=== PATIENT | female | born 1945 | race Caucasian/White ===

== ENCOUNTER 2018-07-28 09:07 | Emergency (ER) | payer MEDICARE, BC ==
--- NOTE | 2018-07-28 10:24 | EDM.PDOC ---
ED HPI GENERAL MEDICAL PROBLEM - General Chief Complaint: General Stated Complaint: left hip pain s/p fall Time Seen by Provider: 07/28/18 09:30 Source of Information: Reports: Patient History Limitations: Reports: No Limitations - History of Present Illness INITIAL COMMENTS - FREE TEXT/NARRATIVE: According to patient she was having breakfast in the local restaurant today morning. As they were coming out of the restaurant, she slipped on thin ice on the ground and fell landed on her left buttock.Since then patient claims she cannot walk or weight bear on her left foot and most of the pain in the in the inner groin region on the left side and in the pubic region of the pelvis. No swelling or bruising of the hip or buttock. No pain in the knees or feet. No other injuries. Onset: Today Onset Date: 07/28/18 Onset Time: 09:00 Duration: Getting Worse, Waxing/Waning Location: Reports: Pelvis Quality: Reports: Ache Severity: Moderate Improves with: Reports: Immobilization Worsens with: Reports: Movement Associated Symptoms: Denies: Confusion, Chest Pain, Cough, Diaphoresis, Fever/ Chills, Headaches, Loss of Appetite, Nausea/Vomiting, Rash, Seizure, Shortness of Breath, Syncope, Weakness ED ROS GENERAL - Review of Systems Review Of Systems: See Below Constitutional: Denies: Fever, Chills HEENT: Denies: Rhinitis, Throat Pain, Throat Swelling Respiratory: Denies: Cough, Sputum Cardiovascular: Denies: Chest Pain, Lightheadedness GI/Abdominal: Denies: Abdominal Pain, Nausea, Vomiting : Denies: Discharge, Frequency Musculoskeletal: Denies: Back Pain, Joint Pain, Joint Swelling Skin: Denies: Bruising, Pruritis, Rash ED EXAM, GENERAL - Physical Exam Exam: See Below Exam Limited By: No Limitations General Appearance: Alert, WD/WN, No Apparent Distress Ears: Normal External Exam, Normal Canal, Hearing Grossly Normal, Normal TMs Ear Exam: Bilateral Ear: Auricle Normal, Canal Normal, TM normal Nose: Normal Inspection, Normal Mucosa, No Blood Throat/Mouth: Normal Inspection, Normal Lips, Normal Teeth, Normal Gums, Normal Oropharynx, Normal Voice, No Airway Compromise Head: Atraumatic, Normocephalic Neck: Normal Inspection, Supple, Non-Tender, Full Range of Motion Respiratory/Chest: No Respiratory Distress, Lungs Clear, Normal Breath Sounds, No Accessory Muscle Use, Chest Non-Tender Cardiovascular: Normal Peripheral Pulses, Regular Rate, Rhythm, No Edema, No Gallop, No JVD, No Murmur, No Rub GI/Abdominal: Normal Bowel Sounds, Soft, Non-Tender, No Organomegaly, No Distention, No Abnormal Bruit, No Mass Extremities: Normal Inspection, No Pedal Edema, Normal Capillary Refill, Other ( Pelvis: there is no obvious deformity or bruising noted in the pubic region or the left hip. Cannot flex the thigh due to pain. On palaption no tenderness over the left femoral head or greater trochanter. She definitely is tender over the pubic symphysis to pressure. Cannot weight bear on the left lower extremity. ) Neurological: Alert, Oriented, CN II-XII Intact Course - Vital Signs Text/Narrative:: Pt is tender over the pubic symphysis and difficulty with thigh flexion. She left hip exam appears normal. X-ray of the left hip and pelvis shows undisplaced fracture of the superior and inferior aspect of the left symphysis pubis and also fracture of the mid-portion of the left inferior ramus. All the fractures are undisplaced. Pt's CBC is stable, I do not see any skin bruising in the pubis region.( only because of her Coumadin).Pt has nausea, related to her pain, offered Dilaudid( cannot give toradol Due to increased risk of bleeding with Coumadin) pt would prefer just nausea medication.She did receive zofran and also, zofran dispensed from ER to use every 8 hrs as needed. I did discuss the X-ray finding with Dr. Jacobo at [facility]. Recommendation is weight bearing with walker. But as patient is in pain, have given her Crutches to help with walking. Also advised Tylenol 650mg 4 times daily as needed for pain. No NSIADS. Cold compresses over the pubic region on and off for 24 hrs. Followup with her orthopedist next week for recheck. - Orders/Labs/Meds Orders: Active Orders 24 hr Category Date Time Status Hip Min 1V w Pelvis Lt [CR] Stat Exams 07/28/18 09:35 Taken Labs: Laboratory Tests 07/28/18 Range/Units 10:40 WBC 7.5 (4.0-11.0) K/uL RBC 4.48 (3.80-5.80) M/uL Hgb 13.9 (11.5-16.5) g/dL Hct 42.2 (37.0-47.0) % MCV 94 (76-96) fL MCH 31.0 (27.0-32.0) pg MCHC 32.9 (31.0-35.0) g/dL RDW 14.2 (11.0-16.0) % Plt Count 187 (150-500) K/uL MPV 10.6 H (6.0-10.0) fL Neut % (Auto) 84.7 H (45.0-70.0) % Lymph % (Auto) 10.3 L (20.0-40.0) % [place] % (Auto) 4.5 (3.0-10.0) % Eos % (Auto) 0.4 L (1.0-5.0) % Baso % (Auto) 0.1 (0.0-0.5) % Neut # (Auto) 6.36 (2.00-7.50) K/uL Lymph # (Auto) 0.77 L (1.50-4.00) K/uL [place] # (Auto) 0.34 (0.20-0.80) K/uL Eos # (Auto) 0.03 L (0.04-0.40) K/uL Baso # (Auto) 0.01 L (0.02-0.10) K/uL Departure - Departure Time of Disposition: 11:00 Disposition: Home, Self-Care 01 Condition: Fair Clinical Impression: Multiple fractures of pelvis without disruption of pelvic ring - Discharge Information *PRESCRIPTION DRUG MONITORING PROGRAM REVIEWED*: Not Applicable *COPY OF PRESCRIPTION DRUG MONITORING REPORT IN PATIENT KIKI: Not Applicable Instructions: Simple Pelvic Fracture, Adult Referrals: PCP,None [Primary Care Provider] - Forms: ED Department Discharge Additional Instructions: Pt is tender over the pubic symphysis and difficulty with thigh flexion. She left hip exam appears normal. X-ray of the left hip and pelvis shows undisplaced fracture of the superior and inferior aspect of the left symphysis pubis and also fracture of the mid-portion of the left inferior ramus. All the fractures are undisplaced. Pt's CBC is stable, I do not see any skin bruising in the pubis region.( only because of her Coumadin).Pt has nausea, related to her pain, offered Dilaudid( cannot give toradol Due to increased risk of bleeding with Coumadin) pt would prefer just nausea medication.She did receive zofran and also, zofran dispensed from ER to use every 8 hrs as needed. I did discuss the X-ray finding with Dr. Jacobo at [facility]. Recommendation is weight bearing with walker. But as patient is in pain, have given her Crutches to help with walking. Also advised Tylenol 650mg 4 times daily as needed for pain. No NSIADS. Cold compresses over the pubic region on and off for 24 hrs. Followup with her orthopedist next week for recheck. - Problem List Review Problem List Initiated/Reviewed/Updated: Yes - My Orders Last 24 Hours: My Active Orders 07/28/18 09:35 Hip Min 1V w Pelvis Lt [CR] Stat - Assessment/Plan Last 24 Hours: My Active Orders 07/28/18 09:35 Hip Min 1V w Pelvis Lt [CR] Stat Assessment:: Closed stable pelvis fracture Plan: Pt is tender over the pubic symphysis and difficulty with thigh flexion. She left hip exam appears normal. X-ray of the left hip and pelvis shows undisplaced fracture of the superior and inferior aspect of the left symphysis pubis and also fracture of the mid-portion of the left inferior ramus. All the fractures are undisplaced. Pt's CBC is stable, I do not see any skin bruising in the pubis region.( only because of her Coumadin).Pt has nausea, related to her pain, offered Dilaudid( cannot give toradol Due to increased risk of bleeding with Coumadin) pt would prefer just nausea medication.She did receive zofran and also, zofran dispensed from ER to use every 8 hrs as needed. I did discuss the X-ray finding with Dr. Jacobo at [facility]. Recommendation is weight bearing with walker. But as patient is in pain, have given her Crutches to help with walking. Also advised Tylenol 650mg 4 times daily as needed for pain. No NSIADS. Cold compresses over the pubic region on and off for 24 hrs. Followup with her orthopedist next week for recheck.
[2018-07-28] MEDS ORDERED: Ondansetron 4 MG Tab.DIS ONE (11:00)
--- NOTE | 2018-07-29 05:09 | CR ---
DATE OF SERVICE: 07/28/18 CLINICAL DATA: Fall. PELVIS AND LEFT HIP: No priors. There is diffuse osteopenia. 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 There is a lucency through the left pubic bone with a cortical stepoff along the medial aspect of the left superior pubic ramus consistent with a fracture. No hip fracture. No other acute abnormalities. There are vascular calcifications in the pelvis and proximal thighs. [id number] [facility]
== END 2018-07-28 11:05 | disposition home or self-care (01) ==
LOC: LB.ED 09:07 → EDBD 09:07 → LB.ED 11:05
DX: S32.82XA Multiple fractures of pelvis without disruption of pelvic ring, initial encounter for closed fracture (principal); W00.0XXA Fall on same level due to ice and snow, initial encounter; Y92.511 Restaurant or cafe as the place of occurrence of the external cause
CPT/HCPCS: 36415; 73501-LT; 85025; 99283-25; A9270-GY